=== PATIENT | male | born 1975 | race Caucasian/White ===

== ENCOUNTER 2018-03-17 05:00 | Emergency (ER) | payer SELFPAY ==
[~2018-03-17] VITALS: Ht 177.8 cm; Wt 90.7 kg
[2018-03-17 05:34] VITALS: BP 146/80
== END 2018-03-17 05:46 | disposition home or self-care (01) ==
LOC: ER 05:00
DX: F11.10 Opioid abuse, uncomplicated (principal); B19.20 Unspecified viral hepatitis C without hepatic coma
CPT/HCPCS: 99283